=== PATIENT | male | born 1955 | race Caucasian/White ===

== ENCOUNTER 2018-12-17 07:26 | Emergency (ER) | payer OTHER ==
[~2018-12-17] VITALS: Ht 170.2 cm; Wt 102.5 kg
[2018-12-17] MEDS ORDERED: CHLORTHALIDONE25 MG PO (07:42)
[2018-12-17] MEDS ORDERED: FLOMAX0.4 MG PO (07:42)
[2018-12-17] MEDS ORDERED: POTASSIUM20 PO (07:43)
[2018-12-17] MEDS ORDERED: CRESTOR10 MG PO (07:43)
[2018-12-17] MEDS ORDERED: VITAMIN D1000 UNI1 PO (07:44)
[2018-12-17 07:54] LABS: ABSOLUTE NEUTROPHILS 7.4 thou/uL (1.4-8.2); BASOPHILS 0.2 % (0.0-2.0); EOSINOPHILS 0.2 % (0.0-3.0); HEMATOCRIT 47.9 % (42.0-52.0); HEMOGLOBIN 16.7 gm/dL (14.0-18.0); LYMPHOCYTES 2.9 % (24.0-44.0); MCH 31.3 pg (26.0-34.0); MCHC 34.9 g/dL (28.0-37.0); MCV 89.5 fL (80.0-100.0); MONOCYTES 3.3 % (1.0-8.0); PLATELET COUNT 194 thou/uL (150-400); POLYS 93.4 % (36.0-66.0); RBC 5.35 mil/uL (4.50-6.00); RDW 13.8 % (10.5-14.5)
[2018-12-17 07:59] LABS: CALCIUM 9.5 mg/dL (8.5-10.1); CREATININE 1.5 mg/dL (0.7-1.3); POTASSIUM 3.3 mmol/L (3.5-5.1)
[2018-12-17 08:05] LABS: ALBUMIN 4.1 g/dL (3.4-5.0); TOTAL PROTEIN 7.9 g/dL (6.4-8.2)
[2018-12-17 08:35] LABS: URINE CLARITY CLEAR; URINE COLOR YELLOW; URINE PROTEIN (DIPSTICK) 1+ (Negative)
[2018-12-17 08:36] LABS: URINE GLUCOSE-RANDOM* NEGATIVE (Negative); URINE KETONES NEGATIVE (Negative)
[2018-12-17 08:37] LABS: URINE BILIRUBIN NEGATIVE (Negative); URINE BLOOD NEGATIVE (Negative); URINE UROBILINOGEN 0.2 E.U./dl (0.2-1.0)
[2018-12-17 08:40] LABS: URINE LEUKOCYTES-REFLEX TRACE (Negative)
[2018-12-17 08:42] LABS: CASTS None Seen /LPF (None Seen); CRYSTALS None Seen /LPF (None Seen); MUCUS 4-6 Moderate strn/LPF (None Seen); SQUAMOUS None Seen /LPF (0-3); URINE RBC None Seen /HPF (0-2); URINE WBC-REFLEX 0-5 Rare /HPF (0-5)
[2018-12-17 08:43] LABS: BACTERIA-REFLEX 1-9 Few /HPF (None Seen)
[2018-12-17 08:44] LABS: URINE NITRITE-REFLEX NEGATIVE (Negative)
[2018-12-17] MEDS ORDERED: BENTYL 20 MG TA20 M1 PO (10:34)
[2018-12-17] MEDS ORDERED: ZOFRAN ODT4 MG PO (10:34)
[2018-12-17] MEDS ORDERED: LOPERAMIDE 2 MG2 M1 PO (10:34)
[2018-12-17 12:14] VITALS: BP 122/71
== END 2018-12-17 12:17 | disposition home or self-care (01) ==
LOC: ER 07:26
PROVIDERS: Emergency Medicine
DX: K52.9 Noninfective gastroenteritis and colitis, unspecified (principal); Z87.891 Personal history of nicotine dependence